=== PATIENT | male | born 1940 | race Caucasian/White ===

== ENCOUNTER 2017-04-22 13:42 | Emergency (ER) | payer MEDICARE, OTHER ==
[~2017-04-22] VITALS: Ht 182.9 cm; Wt 88.9 kg
--- NOTE | 2017-04-22 14:00 | NUR ---
PATIENT ARRIVED TO ER, C/O LEFT HIP PAIN 04/02, S/P SITTING DOWN AT HOME. PATIENT THINKS HIP MAY BE DISLOCATED. PATIENT IS A/O X 4, BREATHING EVEN AND UNLABORED ON ROOM AIR. NO OTHER COMPLICATIONS NOTED. SAFETY AND COMFORT MEASURES IN PLACE, AWAITING MD ORDERS.
--- NOTE | 2017-04-22 14:30 | NUR ---
PER DR. LEPE, PATIENT TO HAVE CLOSED REDUCTION UNDER MODERATE SEDATION. WILL PREP PATIENT FOR PROCEDURE.
[2017-04-22] MEDS ORDERED: PROPOFOL 20 ML IV ONE (14:31)
[2017-04-22] MEDS ORDERED: IV NS 0.9% 500 ML IV ONE ×2 (14:40→15:00)
[2017-04-22] MEDS ORDERED: IV SET PRIMARY 1 EA INFUS.SET MC ONE (14:40)
--- NOTE | 2017-04-22 14:40 | NUR ---
NEW IV STARTED ON LAC, 18 GAUGE.
--- NOTE | 2017-04-22 14:52 | NUR ---
CLOSED REDUCTION PERFORMED UNDER MODERATE SEDATION WITH DR. LEPE. PATIENT GIVEN PROPFOL, 9 ML, INITIALLY, THEN AN ADDITIONAL 4.5ML PER DR. LEPE. VITALS REMAINED STABLE THROUGHOUT PROCEDURE. REDUCTION PERFORMED SUCCESSFULLY. ABDUCTOR PILLOW PLACED BETWEEN LEGS. PATIENT AWAKE AND ALERT. WILL CONTINUE TO MONITOR.
[2017-04-22] MEDS ORDERED: METF500T4 PO (14:53)
[2017-04-22] MEDS ORDERED: AMLO5TAB2 PO (14:53)
[2017-04-22] MEDS ORDERED: DOXA2TAB2 PO (14:53)
[2017-04-22] MEDS ORDERED: GABA600T2 PO (14:53)
[2017-04-22] MEDS ORDERED: ABIR250T PO (14:53)
[2017-04-22] MEDS ORDERED: ATOR40TA PO (14:53)
[2017-04-22] MEDS ORDERED: MORP15TA PO (14:53)
[2017-04-22] MEDS ORDERED: ZOLP10TA6 PO (14:53)
[2017-04-22] MEDS ORDERED: PRED5TAB PO (14:53)
[2017-04-22] MEDS ORDERED: ASPI81TA2 PO (14:54)
[2017-04-22] MEDS ORDERED: IBUP-1955 PO (14:54)
[2017-04-22] MEDS ORDERED: METO-302 PO (14:55)
[2017-04-22] MEDS ORDERED: PROPOFOL 200 MG/20 ML VIAL IV ONE (15:00)
[2017-04-22 16:10] VITALS: BP 137/60
--- NOTE | 2017-04-22 16:17 | NUR ---
PATIENT CLEARED FOR DISCHARGE PER DR. LEPE. PATIENT'S VITALS REMAIN STABLE. NO COMPLAINTS FROM PATIENT. PATIENT PROVIDED WITH DISCHARGE EDUCATION. VERBALIZES UNDERSTANDING. PATIENT DISCHARGED HOME WITH FAMILY.
== END 2017-04-22 16:18 | disposition home or self-care (01) ==
LOC: ER 13:44
DX: S73.005A Unspecified dislocation of left hip, initial encounter (principal); Z95.1 Presence of aortocoronary bypass graft; Z88.8 Allergy status to other drugs, medicaments and biological substances; Z79.82 Long term (current) use of aspirin; Z98.890 Other specified postprocedural states; X58.XXXA Exposure to other specified factors, initial encounter; Y93.89 Activity, other specified; Y92.89 Other specified places as the place of occurrence of the external cause; Y99.9 Unspecified external cause status
CPT/HCPCS: 27265; 72170 ×2; 99152; 99285; J2704; J7040